=== PATIENT | female | born 2000 | race Caucasian/White ===

== ENCOUNTER 2019-05-15 17:28 | Emergency (ER) | payer BC ==
[2019-05-15 18:30] LABS: Bilirubin Negative (Negative); Blood, Urine Negative (Negative); Calcium Oxalate Crystals 4+ HPF (None Seen); Clarity Clear (Clear); Glucose, Urine (Dipstick) Normal (Negative); Leukocyte Negative Leu/uL (Negative); Nitrite Negative (Negative); Protein, Urine (Dipstick) 30 mg/dL (Neg-Trace); Squamous Epithelial 0-3 HPF (0-3)
[2019-05-15 18:31] LABS: Bacteria/HPF 1+ HPF (None Seen); RBC/HPF 0-3 HPF (0-3)
--- NOTE | 2019-05-15 20:06 | ULT ---
OB ULTRASOUND: 05/15/19 HISTORY: Patient states she felt fluid leaking. Real time imaging of the pelvis shows a single viable intrauterine in a transverse lie, hea d on the maternal right side. measurements are as follows: BPD 3.3 cm 16 weeks, 1 day Head circumference 12.7 cm 16 weeks, 3 days Abdominal circumference 11.4 cm 17 weeks, 1 day Femur length 2.4 cm 17 weeks, 1 day The amniotic fluid visually appears adequate. The deepest pocket is 3.6 cm. Discussed with the techno logist who states she did not do a complete amniotic fluid index due to the age, but also felt fluid to be adequate. The cervical canal length is 4.5 cm. The placenta is posterior in location. No evidence of previa. IMPRESSION: 1. Single viable intrauterine in a transverse lie. Overall measurements corresponding to 16 weeks, 4 days. Estimated date of delivery 10/26/19. 2. Placenta which is posterior in location without evidence of previa. 3. Cervical canal length of 4.5 cm. 4. Adequate amniotic fluid. POS: [facility]
[2019-05-15] MEDS ORDERED: Ondansetron ODT 4 MG TAB ONE (22:14)
[2019-05-18 23:19] LABS: Chlamydia by PCR Not Detected (NotDetected); GC by PCR Not Detected (NotDetected)
== END 2019-05-15 23:21 | disposition home or self-care (01) ==
LOC: ERS 17:28
DX: O99.89 Other specified diseases and conditions complicating pregnancy, childbirth and the puerperium (principal); R10.2 Pelvic and perineal pain; O99.512 Diseases of the respiratory system complicating pregnancy, second trimester; J45.909 Unspecified asthma, uncomplicated; O99.342 Other mental disorders complicating pregnancy, second trimester; F32.9 Major depressive disorder, single episode, unspecified; F41.9 Anxiety disorder, unspecified; Z3A.17 17 weeks gestation of pregnancy
CPT/HCPCS: 36415; 76856; 81003; 81015; 84702; 86900; 86901; 87480; 87491; 87510; 87591; 87660; Q0162

== ENCOUNTER 2019-10-20 08:18 | Outpatient (CLI) | payer BC, OTHER ==
[2019-10-21 13:11] LABS: SARS-CoV-2 MS2 Positive; SARS-CoV-2 N Gene Negative; SARS-CoV-2 S Gene Negative; SARS-CoV-2 orf1ab Negative
== END 2019-10-20 08:19 | disposition home or self-care (01) ==
LOC: SCSLAB 08:18
PROVIDERS: ATTEND Obstetrics & Gynecology
DX: Z01.812 Encounter for preprocedural laboratory examination (principal); Z11.59 Encounter for screening for other viral diseases
CPT/HCPCS: 87635; U0003

== ENCOUNTER 2019-10-21 19:15 | Inpatient (IN) | payer BC, OTHER ==
[2019-10-21] MEDS ORDERED: Docusate 100 MG CAP PO PRN (19:26)
[2019-10-21] MEDS ORDERED: Lidocaine 1% (PF) 30 ML VIAL SC PRN (19:26)
[2019-10-21] MEDS ORDERED: Ondansetron PF 4 MG/2 ML Vial IVP PRN (19:26)
[2019-10-21] MEDS ORDERED: Promethazine HCl 25 MG/ML VIAL IM PRN (19:26)
[2019-10-21] MEDS ORDERED: hydrALAZINE 20 MG/ML VIAL SLOW IVP PRN (19:26)
[2019-10-21] MEDS ORDERED: Acetaminophen 500 MG TAB PO PRN (19:26)
[2019-10-21] MEDS ORDERED: NS / Oxytocin 40 units/1000ml 1,000 ML IV PRN (19:26)
[2019-10-21] MEDS ORDERED: Zolpidem Tartrate 5 MG TAB PO PRN (19:26)
--- NOTE | 2019-10-21 19:31 | PDOC.LDHP ---
Labor and Delivery H&P Chief complaint: scheduled induction HPI: 19 y/o at 39 and 1/7 weeks presents for term induction of labor. 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
[2019-10-21] MEDS ORDERED: NS w/ Oxytocin 10 units 500 ML IV SCH (20:00)
[2019-10-21 21:24] VITALS: BMI 43.9
[2019-10-21 22:16] LABS: Mean Corpuscular HGB CONC 32.5 g/dL (32.0-36.0); Mean Corpuscular Hemoglobin 21.4 pg (27.0-31.0); Mean Corpuscular Volume 65.9 fL (78.0-98.0); Mean Platelet Volume 12.6 fL (7.4-10.4); Platelet Count 304 thou/uL (130-400); RBC Distribution Width 15.5 % (11.5-14.5); Red Blood Cell (RBC) Count 4.65 mill/uL (4.20-5.40); White Blood Cell (WBC) Count 13.9 thou/uL (4.8-10.8)
[2019-10-21 22:47] LABS: Syphilis Antibody Nonreactive (Nonreactive); Syphilis Antibody Index 0.03 S/CO (<1.00 Non-Reactive)
[2019-10-21] MEDS: Misoprostol 100 MCG TAB VAG SCH ×2 (23:32→23:37)
[2019-10-21] MEDS: Lactated Ringer's 1,000 ML IV SCH (23:37)
[2019-10-22 00:48] LABS: HBSAg Index 0.12 S/CO (0-0.99); Hep B Surf Ag Non-Reactive S/CO (NonReactive)
[2019-10-22] MEDS: Butorphanol Tartrate 1 MG/ML VIAL SLOW IVP PRN ×2 (06:10→08:29)
[2019-10-22] MEDS: Lactated Ringer's 1,000 ML IV SCH ×3 (06:16→21:59)
[2019-10-22] MEDS: NS w/ Oxytocin 10 units 500 ML IV SCH ×2 (06:17→22:00)
[2019-10-22] MEDS: Misoprostol 100 MCG TAB VAG SCH ×3 (06:17→22:00)
[2019-10-22] MEDS ORDERED: Bupivacaine/Epinephrine 0.25% 30 ML VIAL ONE (09:12)
[2019-10-22] MEDS ORDERED: Bupivacaine HCl 0.5%/Epinephrine 1:200,000/PF 30 ml Vial ONE (09:12)
[2019-10-22] MEDS ORDERED: Fentanyl 4 mcg/Bup 0.1% Cadd 100 ML ONE ×2 (09:34→18:02)
[2019-10-22] MEDS ORDERED: Naloxone HCl 0.4 mg/ml Vial IVP PRN ×2 (10:51)
[2019-10-22] MEDS ORDERED: Ondansetron PF 4 MG/2 ML Vial IVP PRN (10:51)
[2019-10-22] MEDS ORDERED: EPHEDRINE 25 MG/5 ML SYRINGE SLOW IVP PRN (10:51)
[2019-10-22] MEDS ORDERED: Lactated Ringer's 500 ML IV PRN (10:51)
[2019-10-22] MEDS ORDERED: diphenhydrAMINE 50 MG/ML VIAL IVP PRN (10:51)
[2019-10-22] MEDS ORDERED: Promethazine HCl 25 MG/ML VIAL IM PRN (10:51)
[2019-10-22] MEDS ORDERED: Acetaminophen 325 MG TAB PO PRN (10:51)
[2019-10-22] MEDS: Fentanyl 4 mcg/Bupivacaine 0.1% Cassette 100 ML EPIDURAL SCH ×2 (11:00→18:11)
[2019-10-22] MEDS ORDERED: Communication Order-Pharmacy FS SCH (11:00)
[2019-10-22] MEDS: Dextrose 5%-Lactated Ringers 1,000 ML IV SCH ×2 (12:49→14:53)
[2019-10-22] MEDS ORDERED: Lidocaine 1% (PF) 30 ML VIAL ONE (21:12)
[2019-10-22] MEDS ORDERED: NS / Oxytocin 40 units/1000ml 1,000 ML ONE (21:12)
[2019-10-23] MEDS: Misoprostol 100 MCG TAB VAG SCH ×2 (01:37→03:14)
[2019-10-23] MEDS ORDERED: Lanolin Ointment 7 GM TUBE TOP PRN (03:09)
[2019-10-23] MEDS ORDERED: Methylergonovine 0.2 MG/ML VIAL IM PRN (03:09)
[2019-10-23] MEDS ORDERED: Milk Of Magnesia 30 ML UDCUP PO PRN (03:09)
[2019-10-23] MEDS ORDERED: Misoprostol 200 MCG TAB VAG PRN (03:09)
[2019-10-23] MEDS ORDERED: hydrALAZINE 20 MG/ML VIAL SLOW IVP PRN (03:09)
[2019-10-23] MEDS ORDERED: Zolpidem Tartrate 5 MG TAB PO PRN (03:09)
[2019-10-23] MEDS ORDERED: HYDROcodone/Acetaminophen 5/325 mg Tablet PO PRN ×2 (03:09)
[2019-10-23] MEDS ORDERED: Preparation H Ointment 28 GM TUBE PR PRN (03:09)
[2019-10-23] MEDS ORDERED: Benzocaine-Menthol 82.5 ML CAN TOP PRN (03:09)
[2019-10-23] MEDS ORDERED: NS / Oxytocin 40 units/1000ml 1,000 ML IV SCH (03:09)
[2019-10-23] MEDS ORDERED: Ondansetron PF 4 MG/2 ML Vial IVP PRN (03:09)
[2019-10-23] MEDS ORDERED: diphenhydrAMINE 25 MG CAP PO PRN (03:09)
[2019-10-23] MEDS ORDERED: Promethazine HCl 25 MG/ML VIAL IM PRN (03:09)
[2019-10-23] MEDS ORDERED: Bisacodyl 10 MG SUPP PR PRN (03:09)
[2019-10-23] MEDS: Ibuprofen 800 MG TAB PO SCH ×3 (04:30→21:19)
[2019-10-23 06:47] LABS: Hemoglobin 9.2 g/dL (12.0-16.0); Mean Corpuscular HGB CONC 32.5 g/dL (32.0-36.0); Mean Corpuscular Hemoglobin 21.6 pg (27.0-31.0); Mean Corpuscular Volume 66.4 fL (78.0-98.0); Mean Platelet Volume 12.3 fL (7.4-10.4); Platelet Count 245 thou/uL (130-400); RBC Distribution Width 15.4 % (11.5-14.5); Red Blood Cell (RBC) Count 4.26 mill/uL (4.20-5.40); White Blood Cell (WBC) Count 25.8 thou/uL (4.8-10.8)
[2019-10-23] MEDS ORDERED: Adacel (T-DAP) 0.5 ML SYRINGE IM ONE (09:00)
[2019-10-23] MEDS ORDERED: Varicella virus, LIVE 0.5 ML VIAL SC ONE (09:00)
[2019-10-23] MEDS ORDERED: Measles/Mumps/Rubella 10 MCG/0.5 ML VIAL SC ONE (09:00)
[2019-10-23] MEDS: Prenatal Vitamin 1 TAB PO SCH (09:47)
[2019-10-23] MEDS: Ferrous Sulfate 325 MG TAB PO SCH ×2 (09:48→16:59)
[2019-10-23] MEDS: Docusate Calcium (SURFAK) 240 MG CAP PO SCH ×4 (09:48→21:20)
--- NOTE | 2019-10-23 18:28 | PDOC.PP ---
Post Progress Note Post Day #: 0 PO intake tolerated: yes Flatus: yes Ambulation: yes Vital Signs (12 hours) Temp Pulse Resp BP Pulse Ox 10/23/19 16:00 98.5 F 82 18 97/56 L 10/23/19 11:46 98.3 F 74 20 92/51 L 98 10/23/19 08:30 98.3 F 81 20 98/55 L 97 Weight Weight 210 lb - Physical Examination General: NAD Cardiovascular: no m/r/g, RRR Respiratory: clear to auscultation bilaterally, non-labored breathing Abdominal: + bowel sounds, lochia, no distention Extremities: negative homans (B) Psychiatric: A&Ox3, normal affect Result Diagrams: 10/23/19 06:29 Additional Labs: Post Labs Blood Type O POSITIVE 10/21/19 21:59 Hep Bs Antigen Non-Reactive S/CO (NonReactive) 10/21/19 21:59
[2019-10-24] MEDS: Ibuprofen 800 MG TAB PO SCH ×2 (05:19→14:04)
--- NOTE | 2019-10-24 07:18 | DN ---
DATE OF PROCEDURE: 10/23/2019 TIME OF SERVICE: At 0020 [place] Day[employer] Savings Time. PREOPERATIVE DIAGNOSIS: Intrauterine at 39 weeks and 3 days with a term induction of labor. POSTOPERATIVE DIAGNOSIS: Intrauterine at 39 weeks and 3 days with a term induction of labor. PROCEDURE: Spontaneous vaginal delivery over a second-degree laceration of the perineum. FINDINGS: Viable male infant weighing 3240 g or 7 pounds 2 ounces. Apgars of 9 and 9. QUANTITATIVE BLOOD LOSS: 273 mL. COMPLICATIONS: None. PROCEDURE IN DETAIL: The patient presented to [facility] where she was admitted to the labor and delivery service. The patient underwent a normal and uneventful labor with normal cervical dilatation until she was found to be completely dilated. She was then allowed to push and was able to bring the baby down and delivered the baby in a vertex presentation without difficulties. Once the head delivered in occiput anterior position, the shoulders followed spontaneously along with the rest of the baby's body. Once out the baby's mouth and nose were bulb suctioned. The cord was clamped and cut and baby was handed to waiting attendants. Cord blood was collected. Gentle fundal massage was performed and the placenta delivered intact without problems. Hemostasis was assured. Quantitative blood loss was calculated. Inspection of the cervix, vaginal vault, and perineum did not reveal any lacerations needing suturing. Once again, hemostasis was within normal limits and the patient was allowed to recover in the labor and delivery room. Baby went to nursery. Job ID: [id number]
[2019-10-24 07:34] VITALS: BP 118/60; TEMP 98.6
[2019-10-24] MEDS: Prenatal Vitamin 1 TAB PO SCH (08:35)
[2019-10-24] MEDS: Ferrous Sulfate 325 MG TAB PO SCH (08:35)
[2019-10-24] MEDS: Docusate Calcium (SURFAK) 240 MG CAP PO SCH (08:51)
[2019-10-24] MEDS ORDERED: Ketoconazole 2% Cream 15 gm Tube TOP SCH (15:00)
== END 2019-10-24 17:10 | disposition home or self-care (01) | DRG 807 ==
LOC: L&D 19:43 → 3SW 10-23 03:20
PROVIDERS: ADMIT Obstetrics & Gynecology; ATTEND Obstetrics & Gynecology
PROC: 10E0XZZ Delivery of Products of Conception, External Approach (ICD-10-PCS; principal; 2019-10-23)
PROC: 3E0P7VZ Introduction of Hormone into Female Reproductive, Via Natural or Artificial Opening (ICD-10-PCS; 2019-10-23)
DX: O98.52 Other viral diseases complicating childbirth (principal); Z37.0 Single live birth; B00.9 Herpesviral infection, unspecified; Z3A.39 39 weeks gestation of pregnancy; O70.1 Second degree perineal laceration during delivery
CPT/HCPCS: 36415; 51702; 85027; 86780; 86850; 86900; 86901; 87340; 87635; 90715; J0595; J0670; J2001; J2405; J2590; U0003